=== PATIENT | female | born 1995 | race Caucasian/White ===

== ENCOUNTER 2017-06-09 12:07 | Emergency (ER) | END 2017-06-09 15:20 | disposition home or self-care (01) ==

== ENCOUNTER 2017-07-21 01:13 | Emergency (ER) | END 2017-07-21 05:11 | disposition home or self-care (01) ==

== ENCOUNTER 2017-08-07 23:03 | Emergency (ER) | END 2017-08-08 03:50 | disposition home or self-care (01) ==

== ENCOUNTER 2017-09-19 07:46 | Emergency (ER) | END 2017-09-19 10:21 | disposition home or self-care (01) ==

== ENCOUNTER 2018-07-02 14:10 | Emergency (ER) | payer SELFPAY ==
[~2018-07-02] VITALS: Ht 157.5 cm; Wt 74.9 kg
[~2018-07-02 14:10] MED LIST: CEPH-443 PO; IBUP-1542 PO; ONDA4TAB14 PO
[2018-07-02 14:14] VITALS: BP 116/64; PULSE 77; RESP 20; Ht 157.5 cm; Wt 74.9 kg
[2018-07-03] MEDS ORDERED: GUAI-637 PO (23:51)
[2018-07-03] MEDS ORDERED: ONDA4TAB14 PO (23:51)
[2018-07-03] MEDS ORDERED: DOXY1TAB3 PO (23:51)
== END 2018-07-02 18:06 | disposition left against medical advice (07) ==
LOC: FTE 14:10
DX: Z53.21 Procedure and treatment not carried out due to patient leaving prior to being seen by health care provider (principal)

== ENCOUNTER 2018-07-02 23:02 | Emergency (ER) | payer OTHER ==
[~2018-07-02] VITALS: Ht 157.5 cm; Wt 75.7 kg
[2018-07-02 23:14] VITALS: BP 122/60; PULSE 83; RESP 19; Ht 157.5 cm; Wt 75.7 kg
[2018-07-03] MEDS ORDERED: ONDA4TAB14 PO (23:51)
[2018-07-03] MEDS ORDERED: GUAI-637 PO (23:51)
[2018-07-03] MEDS ORDERED: DOXY1TAB3 PO (23:51)
== END 2018-07-03 02:32 | disposition left against medical advice (07) ==
LOC: FTE 23:02
DX: Z53.21 Procedure and treatment not carried out due to patient leaving prior to being seen by health care provider (principal)

== ENCOUNTER 2018-07-03 19:09 | Emergency (ER) | payer OTHER ==
[~2018-07-03] VITALS: Ht 152.4 cm; Wt 74.7 kg
[2018-07-03 19:14] VITALS: Ht 152.4 cm; Wt 74.7 kg
[2018-07-03] MEDS ORDERED: ONDANSETRON (ODT) 4 MG TAB ODT STA (23:10)
[2018-07-03] MEDS ORDERED: DOXY1TAB3 PO (23:51)
[2018-07-03] MEDS ORDERED: ONDA4TAB14 PO (23:51)
[2018-07-03] MEDS ORDERED: GUAI-637 PO (23:51)
--- NOTE | 2018-07-03 23:55 | ERD ---
ER Documentation Chief Complaint Chief Complaint cough, runny nose, vomiting, body aches x3 days. 9 wks ROS All systems reviewed and are negative except as per history of present illness. Medications Home Meds Active Scripts Guaifenesin* (Robitussin*) 100 Mg/5 Ml Syrup, 100 MG PO Q6H PRN for COUGH for 5 Days, #1 BOTTLE Prov:SERA ORTIZ DO 07/03/18 Ondansetron (Ondansetron Odt) 4 Mg Tab.rapdis, 4 MG PO Q6H PRN for NAUSEA AND/OR VOMITING, #20 TAB Prov:SERA ORTIZ DO 07/03/18 Doxylamine/Pyridoxine Hcl (DICLEGIS DR 10-10 MG TABLET) 1 Each Tablet.dr, 1 TAB PO DAILY PRN for nausea, vomiting, #30 TAB take 2 tabs at bedtime on day 1 and 2 if symptoms persist, take 1 tab in the morning and 2 tabs at bedtime if symptoms persist, take 1 tab in the morning, 1 tab in afternoon and 2 tabs at bedtime maximum 4 tabs daily Prov:SERA ORTIZ DO 07/03/18 Ondansetron (Ondansetron Odt) 4 Mg Tab.rapdis, 4 MG PO Q6H PRN for NAUSEA AND/OR VOMITING, #10 TAB Prov:NATALEE PEARL PA-C 09/19/17 Ibuprofen* (Motrin*) 600 Mg Tab, 600 MG PO Q6, #30 TAB Prov:NATALEE PEARL PA-C 09/19/17 Cephalexin* (Keflex*) 500 Mg Capsule, 500 MG PO TID for 7 Days, #21 CAP Prov:RADHA,MELODY 08/08/17 Allergies Allergies: Coded Allergies: No Known Allergy (Unverified , 08/07/17) PMhx/Soc Medical and Surgical Hx: pt denies Medical Hx, pt denies Surgical Hx History of Surgery: No Anesthesia Reaction: No Hx Neurological Disorder: No Hx Respiratory Disorders: No Hx Cardiac Disorders: No Hx Psychiatric Problems: No Hx Miscellaneous Medical Probl: No Hx Alcohol Use: Yes (socially; quit when found out about ) Hx Substance Use: Yes Hx Tobacco Use: Yes (socially; quit when found out about ) Smoking Status: Former smoker Physical Exam Vitals Vital Signs Date Temp Pulse Resp B/P (MAP) Pulse Ox O2 O2 Flow FiO2 Time Delivery Rate 07/03/18 98.8 110 18 115/69 98 19:14 (84) Physical Exam Const: No acute distress Head: Atraumatic Eyes: Normal Conjunctiva ENT: Normal External Ears, Nose and Mouth. Neck: Full range of motion. No meningismus. Resp: Clear to auscultation bilaterally Cardio: Regular rate and rhythm, no murmurs Abd: Soft, non tender, non distended. Normal bowel sounds Skin: No petechiae or rashes Back: No midline or flank tenderness Ext: No cyanosis, or edema Neur: Awake and alert Psych: Normal Mood and Affect Results 24 hrs Current Medications Medications Dose Sig/Trupti Start Time Status Last (Trade) Ordered Route PRN Stop Time Admin Dose Reason Admin Ondansetron 4 mg ONCE STAT 07/03/18 DC 07/03/18 HCl (Zofran ODT 23:10 07/03/18 23:14 Odt) 23:11 Departure Diagnosis: Primary Impression: URI (upper respiratory infection) URI type: unspecified URI Qualified Codes: J06.9 - Acute upper respiratory infection, unspecified Additional Impression: Vomiting affecting Condition: Fair Patient Instructions: Preventing Common Respiratory Infections, Vomiting (6Y- Adult) Additional Instructions: Call your primary care doctor TOMORROW for an appointment during the next 1-2 days.See the doctor sooner or return here if your condition worsens before your appointment time. Follow up with agile project manager SERA ORTIZ DO July 03, 2018 23:54
[2018-07-04 00:10] VITALS: BP 120/71; PULSE 82; RESP 16
== END 2018-07-04 00:23 | disposition home or self-care (01) ==
LOC: FTE 19:09
DX: O99.511 Diseases of the respiratory system complicating pregnancy, first trimester (principal); J06.9 Acute upper respiratory infection, unspecified; Z3A.09 9 weeks gestation of pregnancy
CPT/HCPCS: 87400; Z7502; Z7610; 99283

== ENCOUNTER 2018-08-13 08:32 | Emergency (ER) | payer OTHER ==
[~2018-08-13] VITALS: Ht 154.9 cm; Wt 75.7 kg
[~2018-08-13 08:32] MED LIST changes: +DOXY1TAB3 PO; +GUAI-637 PO
[2018-08-13 08:35] VITALS: BP 118/55; PULSE 63; RESP 17; Ht 154.9 cm; Wt 75.7 kg
[2018-08-13] MEDS ORDERED: ACET500C5 PO (10:12)
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
== END 2018-08-13 10:31 | disposition home or self-care (01) ==
LOC: FTE 08:32
DX: O26.892 Other specified pregnancy related conditions, second trimester (principal); R10.2 Pelvic and perineal pain; Z3A.16 16 weeks gestation of pregnancy
CPT/HCPCS: 76805; 81003; Z7502

== ENCOUNTER 2018-09-08 00:12 | Emergency (ER) | payer OTHER ==
[~2018-09-08] VITALS: Ht 154.9 cm; Wt 77.0 kg
[~2018-09-08 00:12] MED LIST changes: +ACET500C5 PO
[2018-09-08 00:20] VITALS: Ht 154.9 cm; Wt 77.0 kg
--- NOTE | 2018-09-08 02:15 | ERD ---
ER Documentation Chief Complaint Chief Complaint vomiting x 1 day, states 19 weeks , denies vb HPI Patient is a 23-year-old at 19 weeks gestation presenting to the ED for multiple complaints. Patient reports running and injuring her right ankle without fall. Patient admits to hearing a "crack" sound and denies taking any OTC medication. Patient reports incident occurred around 5PM. Patient is also reporting of nausea, emesis, and diarrhea since 5 PM. Patient reports of 8 NBNB emesis and 4 watery diarrhea. Patient admits to drinking Gatorade but reports she is unable to hold fluids or solid. ROS All systems reviewed and are negative except as per history of present illness. Medications Home Meds Active Scripts Metoclopramide* (Reglan*) 10 Mg Tablet, 10 MG PO Q6 PRN for NAUSEA AND/OR VOMITING, #10 TAB Prov:LIA RIGGS PA-C 09/08/18 Acetaminophen* (Tylophen*) 500 Mg Capsule, 1 CAP PO Q6H PRN for PAIN AND OR ELEVATED TEMP, #20 CAP Prov:MARTÍN COELHO PA-C 08/13/18 Guaifenesin* (Robitussin*) 100 Mg/5 Ml Syrup, 100 MG PO Q6H PRN for COUGH for 5 Days, #1 BOTTLE Prov:SERA ORTIZ DO 07/03/18 Ondansetron (Ondansetron Odt) 4 Mg Tab.rapdis, 4 MG PO Q6H PRN for NAUSEA AND/OR VOMITING, #20 TAB Prov:SERA ORTIZ DO 07/03/18 Doxylamine/Pyridoxine Hcl (DICLEGIS 10-10 MG TABLET) 1 Each Tablet.dr, 1 TAB PO DAILY PRN for nausea, vomiting, #30 TAB take 2 tabs at bedtime on day 1 and 2 if symptoms persist, take 1 tab in the morning and 2 tabs at bedtime if symptoms persist, take 1 tab in the morning, 1 tab in afternoon and 2 tabs at bedtime maximum 4 tabs daily Prov:SERA ORTIZ DO 07/03/18 Ondansetron (Ondansetron Odt) 4 Mg Tab.rapdis, 4 MG PO Q6H PRN for NAUSEA AND/OR VOMITING, #10 TAB Prov:NATALEE PEARL PA-C 09/19/17 Ibuprofen* (Motrin*) 600 Mg Tab, 600 MG PO Q6, #30 TAB Prov:PEARLNATALEE Valente ZAMORANO 09/19/17 Cephalexin* (Keflex*) 500 Mg Capsule, 500 MG PO TID for 7 Days, #21 CAP Prov:DOMINGUEZ GARCIA 08/08/17 Allergies Allergies: Coded Allergies: No Known Allergy (Unverified , 09/08/18) PMhx/Soc Medical and Surgical Hx: pt denies Medical Hx, pt denies Surgical Hx History of Surgery: No Anesthesia Reaction: No Hx Neurological Disorder: No Hx Respiratory Disorders: No Hx Cardiac Disorders: No Hx Psychiatric Problems: No Hx Miscellaneous Medical Probl: Yes (hx miscarriage) Hx Alcohol Use: Yes (socially; quit when found out about ) Hx Substance Use: No Hx Tobacco Use: Yes (socially; quit when found out about ) Smoking Status: Former smoker FmHx Family History: No diabetes, No coronary disease, No other Physical Exam Vitals Vital Signs Date Temp Pulse Resp B/P (MAP) Pulse Ox O2 O2 Flow FiO2 Time Delivery Rate 09/08/18 98.3 93 18 109/64 97 04:17 (79) 09/08/18 98.8 94 18 111/63 97 00:20 (79) Physical Exam Const: No acute distress Head: Atraumatic Eyes: Normal Conjunctiva ENT: Normal External Ears, Nose and Mouth. Neck: Full range of motion. No meningismus. Resp: Clear to auscultation bilaterally Cardio: Regular rate and rhythm, no murmurs Abd: Soft, non tender, non distended. Normal bowel sounds Skin: No petechiae or rashes Psych: Normal Mood and Affect Right ankle exam: Right lateral malleoli tenderness with medial and lateral swelling. Result Diagram: 09/08/18 0231 09/08/18 0231 Results 24 hrs Laboratory Tests Test 09/08/18 02:31 White Blood Count 10.6 10^3/ul Red Blood Count 3.95 10^6/ul Hemoglobin 12.9 g/dl Hematocrit 35.6 % Mean Corpuscular Volume 90.1 fl Mean Corpuscular Hemoglobin 32.7 pg Mean Corpuscular Hemoglobin Concent 36.2 g/dl Red Cell Distribution Width 12.9 % Platelet Count 208 10^3/UL Mean Platelet Volume 9.8 fl Immature Granulocytes % 0.300 % Neutrophils % 89.1 % Lymphocytes % 7.5 % Monocytes % 2.7 % Eosinophils % 0.2 % Basophils % 0.2 % Nucleated Red Blood Cells % 0.0 /100WBC Immature Granulocytes # 0.030 10^3/ul Neutrophils # 9.4 10^3/ul Lymphocytes # 0.8 10^3/ul Monocytes # 0.3 10^3/ul Eosinophils # 0.0 10^3/ul Basophils # 0.0 10^3/ul Nucleated Red Blood Cells # 0.0 10^3/ul Sodium Level 139 mmol/L Potassium Level 3.9 mmol/L Chloride Level 108 mmol/L Carbon Dioxide Level 22 mmol/L Anion Gap 9 Blood Urea Nitrogen 11 mg/dl Creatinine 0.48 mg/dl Est Glomerular Filtrat Rate mL/min > 60 mL/min Glucose Level 102 mg/dl Calcium Level 9.4 mg/dl Total Bilirubin 0.7 mg/dl Direct Bilirubin 0.00 mg/dl Indirect Bilirubin 0.7 mg/dl Aspartate Amino Transf (AST/SGOT) 15 IU/L Alanine Aminotransferase (ALT/SGPT) 13 IU/L Alkaline Phosphatase 50 IU/L Total Protein 7.5 g/dl Albumin 4.1 g/dl Globulin 3.40 g/dl Albumin/Globulin Ratio 1.20 Current Medications Medications Dose Sig/Trupti Start Time Status Last (Trade) Ordered Route PRN Stop Time Admin Dose Reason Admin Sodium 500 ml @ Q1H ONCE 09/08/18 DC 09/08/18 Chloride 500 mls/hr IV 02:30 09/08/18 02:30 03:29 10 mg ONCE ONCE 09/08/18 DC 09/08/18 Metoclopramid IV 02:30 09/08/18 02:30 e HCl 02:31 (Reglan) Procedures/MDM Patient was seen and evaluated for right ankle injury, emesis, diarrhea, nausea. CBC, CMP are grossly unremarkable. Right ankle x-ray revealed Unremarkable right ankle exam. Patient was started on 500 mL IV normal saline and Reglan IV with improvement of symptoms . Patient is stable and ready for discharge. Follow-up with CULLET WASHER & PCP. Patient will be discharged with Reglan. Departure Diagnosis: Primary Impression: Right ankle pain Chronicity: acute Qualified Codes: M25.571 - Pain in right ankle and joints of right foot Additional Impression: Vomiting and diarrhea Condition: Stable Patient Instructions: Self-Care for Vomiting and Diarrhea Referrals: [facility] Additional Instructions: Patient advised to return to the ED immediately for new or worsening symptoms. Patient advised to follow up with primary care provider in the next 24-48 hours. Patient verbalized understanding and agrees with treatment plan and course of action. If patient has no primary care they may follow up with [facility] + [facility] [address] [place] [phone] or [facility] [id number] [place] [phone] or [facility] [address] [place] [address] LIA RIGGS PA-C Sep 08, 2018 02:15
[2018-09-08] MEDS ORDERED: SOD CHLORIDE 0.9% 500 ML IV ONE (02:30)
[2018-09-08] MEDS ORDERED: METOCLOPRAMIDE 10 MG INJ IV ONE (02:30)
[2018-09-08] MEDS ORDERED: METO10TA92 PO (03:38)
[2018-09-08 04:17] VITALS: BP 109/64; PULSE 93; RESP 18
== END 2018-09-08 04:18 | disposition home or self-care (01) ==
LOC: FTE 00:12
DX: O21.9 Vomiting of pregnancy, unspecified (principal); O99.89 Other specified diseases and conditions complicating pregnancy, childbirth and the puerperium; M25.571 Pain in right ankle and joints of right foot; R19.7 Diarrhea, unspecified; Z3A.19 19 weeks gestation of pregnancy
CPT/HCPCS: 36415; 73610; 80053; 85025; 96374; J2765; J7040; Z7502